=== PATIENT | male | born 1995 | race Caucasian/White ===

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

== ENCOUNTER 2017-01-01 00:40 | Emergency (ER) | payer BC, MEDICAID | END 2017-01-01 01:39 | disposition home or self-care (01) | LOC: D.ER 00:40 | DX: R11.10 Vomiting, unspecified (principal); R10.9 Unspecified abdominal pain; G80.9 Cerebral palsy, unspecified; G40.909 Epilepsy, unspecified, not intractable, without status epilepticus ==